=== PATIENT | male | born 1950 | race Caucasian/White ===

== ENCOUNTER → 2016-08-18 | Outpatient (CLI) | payer OTHER, MEDICARE | LOC: FIMAGING 10:05 | PROVIDERS: ATTEND Orthopaedic Surgery | DX: Z01.818 Encounter for other preprocedural examination (principal); M17.11 Unilateral primary osteoarthritis, right knee ==

== ENCOUNTER 2017-02-28 07:15 | Inpatient (IN) | payer OTHER, MEDICARE ==
--- NOTE | 2017-02-28 06:34 | PDHPUP ---
History & Physical Update H&P update statement: This history and physical update is based on an assessment of the patient which was completed after admission or registration (within 24 hours), but prior to the surgery/procedure.
--- NOTE | 2017-02-28 06:35 | PDIAF ---
- Diagnosis Diagnosis: right knee djd Code Status: Full Code - Medication Management Discharge Medications: Medications to Continue on Transfer Aspirin [Aspirin 81mg (*)] 81 mg PO DAILY 01/18/17 [Last Taken Unknown] Atorvastatin Calcium [Lipitor 40 mg (*)] 40 mg PO DAILY 01/18/17 [Last Taken Unknown] Cholecalciferol Vit D3 [Vitamin D3 (*)] 1,000 units PO DAILY 01/18/17 [Last Taken Unknown] Escitalopram Oxalate [Lexapro 10 MG] 10 mg PO DAILY 01/18/17 [Last Taken Unknown ] Ezetimibe [Zetia 10 MG (*)] 10 mg PO DAILY 01/18/17 [Last Taken Unknown] FENOFIBRATE 160 mg PO DAILY 01/18/17 [Last Taken Unknown] Herbals/Supplements -Info Only 1 ea PO DAILY 01/18/17 [Last Taken Unknown] Losartan Potassium [Cozaar 50 mg (*)] 50 mg PO DAILY 01/18/17 [Last Taken Unknown] Multivitamins [Multivitamin (*)] 1 each PO DAILY 01/18/17 [Last Taken Unknown] metFORMIN SR [Glucophage XR 500 mg (*)] 500 mg PO DAILY 01/18/17 [Last Taken Unknown] Discharge Medications: Refer to the Discharge Home Medication list for PRN reason. - Orders Services needed: Home Care, Physical Therapy Home Care Face to Face: I certify that this patient was under my care and that I had the required [id number] encounter meeting the encounter requirements on the discharge day. My findings support the fact that the patient is homebound as defined in Home Care Face to Face Continued: CMS Chapter 7 Medicare Benefits Manual 30.1.1 , The condition of the patient is such that there exists a normal inability to leave home and consequently, leaving home would require a considerable and taxing effort. Activity/Weight Bearing Restrictions: wbat. rom as tolerated. daily dressing changes. no soaking or immersion. f/u at two weeks. seek attn for increasing redness, swelling, drainage, discharge - Follow Up Care Current Providers and Referrals: Doctor Not,On Staff, [Primary Care Provider] -
[~2017-02-28 07:15] MED LIST: ROPIVACAINE 0.2% 80 MG, EPINEPHrine 0.2 MG, KETOROLAC TROMETHAMINE 30 MG, morphINE 10 M... IU ONE; TRANEXAMIC ACID 1,000 MG in NS 100 ML IV ONE
[2017-02-28] MEDS ORDERED: FAMOTIDINE 20 MG TAB PO ONE (09:23)
[2017-02-28] MEDS ORDERED: ceFAZolin 2 GM/SWFI 2 GM/20 ML SYR IVP ONE (09:23)
[2017-02-28] MEDS ORDERED: THROMBIN (BOVINE) 5,000 UNIT VIAL TP ONE (09:23)
[2017-02-28] MEDS ORDERED: ACETAMINOPHEN 325 MG TAB PO ONE (09:23)
[2017-02-28] MEDS ORDERED: LIDOCAINE 1% 2 ML INJ ID PRN (09:24)
[2017-02-28] MEDS ORDERED: LR 1,000 ML IV ONE (09:24)
[2017-02-28] MEDS ORDERED: ceFAZolin 1 GM/5 ML SYR ONE (09:25)
[2017-02-28] MEDS ORDERED: CALCIUM CHLORIDE 1 GM/10 ML INJ ONE (09:37)
[2017-02-28] MEDS ORDERED: MIDAZOLAM 2 MG/2 ML VIAL ONE (10:27)
[2017-02-28] MEDS ORDERED: PROPOFOL 200 MG/20 ML VIAL ONE (10:27)
[2017-02-28] MEDS ORDERED: LIDOCAINE 2% 5 ML SDV ONE ×2 (10:28→11:45)
--- NOTE | 2017-02-28 10:30 | PDANEPAE ---
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 - Pulmonary History Hx COPD: No Hx Asthma/Reactive Airway Disease: No Hx Recent Upper Respiratory Infection: No Hx Oxygen in Use at Home: No Hx Sleep Apnea: Yes Sleep Apnea Screening Result - Last Documented: Positive Pulmonary History Comment: alex positive uses cpap- instructed pt to bring to hospital - Neurologic History Hx Cerebrovascular Accident: No Hx Seizures: No Hx Dementia: No - Endocrine History Hx Diabetes: Yes Endocrine History Comment: type 2- borderline - Renal History Hx Renal Disorders: No - Liver History Hx Hepatic Disorders: No - Neurological & Psychiatric Hx Hx Neurological and Psychiatric Disorders: No - Cancer History Hx Cancer: No - Congenital Disorder History Hx Congenital Disorders: No - GI History Hx Gastrointestinal Disorders: No - Other Health History Other Health History: none - Chronic Pain History Chronic Pain: Yes (right knee) - Surgical History Prior Surgeries: hernia repair. repine- right shoulder repair ANE Review of Systems Review of Systems: - Exercise capacity METS (RN): 4 METS ANE Patient History - Allergies Allergies/Adverse Reactions: No Known Allergies Allergy (Verified 01/25/17 10:40) - Home Medications Home Medications: Aspirin [Aspirin 81mg (*)] 81 mg PO DAILY 01/18/17 [Last Taken 02/21/17] Atorvastatin Calcium [Lipitor 40 mg (*)] 40 mg PO DAILY 01/18/17 [Last Taken ] Cholecalciferol Vit D3 [Vitamin D3 (*)] 1,000 units PO DAILY 01/18/17 [Last Taken 02/21/17] Escitalopram Oxalate [Lexapro 10 MG] 10 mg PO DAILY 01/18/17 [Last Taken ] Ezetimibe [Zetia 10 MG (*)] 10 mg PO DAILY 01/18/17 [Last Taken 02/21/17] FENOFIBRATE 160 mg PO DAILY 01/18/17 [Last Taken 02/28/17] Herbals/Supplements -Info Only 1 ea PO DAILY 01/18/17 [Last Taken 02/21/17] Losartan Potassium [Cozaar 50 mg (*)] 50 mg PO DAILY 01/18/17 [Last Taken ] Multivitamins [Multivitamin (*)] 1 each PO DAILY 01/18/17 [Last Taken 02/21/17] metFORMIN SR [Glucophage XR 500 mg (*)] 500 mg PO DAILY 01/18/17 [Last Taken 07/12 06:30] - NPO status NPO Since - Liquids (Date): 02/27/17 NPO Since - Liquids (Time): 17:00 NPO Since - Solids (Date): 02/27/17 NPO Since - Solids (Time): 17:00 - Smoking Hx Smoking Status: Former smoker - Family Anes Hx Family Hx Anesthesia Complications: none ANE Labs/Vital Signs - Vital Signs Blood Pressure: 116/85 Heart Rate: 68 Respiratory Rate: 20 O2 Sat (%): 93 Height: 171.45 cm Weight: 97.976 kg ANE Physical Exam - Airway Neck exam: increased neck circumference, short neck Mallampati Score: Class 2 Mouth exam: normal dental/mouth exam - Pulmonary Pulmonary: no respiratory distress, no rales or rhonchi, clear to auscultation, reduced air movement - Cardiovascular Cardiovascular: regular rate and rhythym, no murmur, rub, or gallop - ASA Status ASA Status: III ANE Anesthesia Plan Anesthesia Plan: spinal Regional Anesthesia: single shot NB, adductor canal FNB
[2017-02-28] MEDS ORDERED: MIDAZOLAM 2 MG/2 ML VIAL IVP ONE (10:45)
--- NOTE | 2017-02-28 10:46 | PDANEPAE ---
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 high chol - Pulmonary History Hx COPD: No Hx Asthma/Reactive Airway Disease: No Hx Recent Upper Respiratory Infection: No Hx Oxygen in Use at Home: No Hx Sleep Apnea: Yes Sleep Apnea Screening Result - Last Documented: Positive Pulmonary History Comment: alex positive uses cpap- instructed pt to bring to hospital - Neurologic History Hx Cerebrovascular Accident: No Hx Seizures: No Hx Dementia: No - Endocrine History Hx Diabetes: Yes Endocrine History Comment: type 2- borderline - Renal History Hx Renal Disorders: No - Liver History Hx Hepatic Disorders: No - Neurological & Psychiatric Hx Hx Neurological and Psychiatric Disorders: No - Cancer History Hx Cancer: No - Congenital Disorder History Hx Congenital Disorders: No - GI History Hx Gastrointestinal Disorders: No - Other Health History Other Health History: none - Chronic Pain History Chronic Pain: Yes (right knee) - Surgical History Prior Surgeries: hernia repair. repine- right shoulder repair ANE Review of Systems Review of Systems: - Exercise capacity METS (RN): 4 METS ANE Patient History - Allergies Allergies/Adverse Reactions: No Known Allergies Allergy (Verified 01/25/17 10:40) - Home Medications Home Medications: Aspirin [Aspirin 81mg (*)] 81 mg PO DAILY 01/18/17 [Last Taken 02/21/17] Atorvastatin Calcium [Lipitor 40 mg (*)] 40 mg PO DAILY 01/18/17 [Last Taken ] Cholecalciferol Vit D3 [Vitamin D3 (*)] 1,000 units PO DAILY 01/18/17 [Last Taken 02/21/17] Escitalopram Oxalate [Lexapro 10 MG] 10 mg PO DAILY 01/18/17 [Last Taken ] Ezetimibe [Zetia 10 MG (*)] 10 mg PO DAILY 01/18/17 [Last Taken 02/21/17] FENOFIBRATE 160 mg PO DAILY 01/18/17 [Last Taken 02/28/17] Herbals/Supplements -Info Only 1 ea PO DAILY 01/18/17 [Last Taken 02/21/17] Losartan Potassium [Cozaar 50 mg (*)] 50 mg PO DAILY 01/18/17 [Last Taken ] Multivitamins [Multivitamin (*)] 1 each PO DAILY 01/18/17 [Last Taken 02/21/17] metFORMIN SR [Glucophage XR 500 mg (*)] 500 mg PO DAILY 01/18/17 [Last Taken 07/12 06:30] - NPO status NPO Since - Liquids (Date): 02/27/17 NPO Since - Liquids (Time): 17:00 NPO Since - Solids (Date): 02/27/17 NPO Since - Solids (Time): 17:00 - Smoking Hx Smoking Status: Former smoker - Family Anes Hx Family Hx Anesthesia Complications: none ANE Labs/Vital Signs - Vital Signs Blood Pressure: 116/85 Heart Rate: 68 Respiratory Rate: 20 O2 Sat (%): 93 Height: 171.45 cm Weight: 97.976 kg ANE Physical Exam - Airway Neck exam: FROM Mallampati Score: Class 1 Mouth exam: normal dental/mouth exam - Pulmonary Pulmonary: no respiratory distress - Cardiovascular Cardiovascular: regular rate and rhythym - ASA Status ASA Status: I ANE Anesthesia Plan Anesthesia Plan: MAC
[2017-02-28] MEDS ORDERED: NALOXONE HCL 0.4 MG/ML INJ IVP PRN (11:36)
[2017-02-28] MEDS ORDERED: DEXAMETHASONE 4 MG/ML VIAL IVP PRN (11:36)
[2017-02-28] MEDS ORDERED: fentaNYL 100 MCG/2 ML INJ IVP PRN (11:36)
[2017-02-28] MEDS ORDERED: LR 500 ML IV PRN (11:36)
[2017-02-28] MEDS ORDERED: PHENYLEPHRINE HCL 100 MCG/ML SYR IVP PRN (11:36)
[2017-02-28] MEDS ORDERED: PROMETHAZINE HCL 25 MG/ML INJ IVP PRN ×2 (11:36→12:25)
[2017-02-28] MEDS ORDERED: ALBUTEROL 3 ML DEYVIAL IH PRN (11:36)
[2017-02-28] MEDS ORDERED: ROCURONIUM 50 MG/5 ML VIAL ONE (11:40)
[2017-02-28] MEDS ORDERED: ROPIVACAINE HCL 150 MG/30 ML INJ ONE (11:40)
[2017-02-28] MEDS ORDERED: MAGNESIUM HYDROXIDE 30 ML UDCUP PO PRN (12:25)
[2017-02-28] MEDS ORDERED: ONDANSETRON DISINTEGRATING 4 MG TAB PO PRN (12:25)
[2017-02-28] MEDS ORDERED: POLYETHYLENE GLYCOL 3350 17 GM PKT PO PRN (12:25)
[2017-02-28] MEDS ORDERED: BISACODYL 10 MG SUPP PR PRN (12:25)
[2017-02-28] MEDS ORDERED: LACTULOSE 20 GM/30 ML UDCUP PO PRN (12:25)
[2017-02-28] MEDS ORDERED: PROMETHAZINE HCL 25 MG SUPPR PR PRN (12:25)
[2017-02-28] MEDS ORDERED: ONDANSETRON 4 MG/2 ML VIAL IVP PRN (12:25)
[2017-02-28] MEDS ORDERED: TEMAZEPAM 15 MG CAP PO PRN (12:25)
[2017-02-28] MEDS ORDERED: diphenhydrAMINE 25 MG CAP PO PRN (12:25)
[2017-02-28] MEDS ORDERED: DIPHENOXYLATE/ATROPINE LOMOTIL 1 TAB PO PRN (12:25)
[2017-02-28] MEDS ORDERED: oxyCODONE IR 5 MG TAB PO PRN (12:25)
[2017-02-28] MEDS ORDERED: METOCLOPRAMIDE 10 MG/2 ML VIAL IVP PRN (12:25)
[2017-02-28] MEDS ORDERED: DIAZEPAM 5 MG TAB PO PRN (12:25)
[2017-02-28] MEDS ORDERED: LR 1,000 ML IV SCH (12:30)
--- NOTE | 2017-02-28 13:23 | POSTANESTH ---
Post Anesthetic Evaluation Cardiovascular Status: Normal, Stable Respiratory Status: Normal, Stable Level of Consciousness/Mental Status: Can Participate in Eval Pain Control: Adequate, Prn Tx Ordered Nausea/Vomiting Control: Adequate, Prn Tx Ordered Complications Possibly Related to Anesthesia: None Noted
[2017-02-28] MEDS: TRANEXAMIC ACID 650 MG TAB PO SCH ×2 (15:09→21:03)
[2017-02-28] MEDS: ACETAMINOPHEN 325 MG TAB PO SCH (17:45)
[2017-02-28] MEDS: ceFAZolin 2 GM/DEXTROSE 100 ML IV SCH (18:15)
[2017-02-28] MEDS: FAMOTIDINE 20 MG TAB PO SCH (21:03)
[2017-02-28] MEDS: SENNOSIDES/DOCUSATE SODIUM TAB PO SCH (21:03)
[2017-03-01] MEDS: ACETAMINOPHEN 325 MG TAB PO SCH ×3 (01:38→13:17)
[2017-03-01] MEDS: ceFAZolin 2 GM/DEXTROSE 100 ML IV SCH (03:49)
[2017-03-01] MEDS: TRANEXAMIC ACID 650 MG TAB PO SCH (03:49)
[2017-03-01 05:08] LABS: HEMATOCRIT 37.2 % (40.0-51.0); HEMOGLOBIN 13.1 g/dL (13.7-17.5)
--- NOTE | 2017-03-01 07:17 | PDIAF ---
- Diagnosis Diagnosis: right knee djd Code Status: Full Code - Medication Management Discharge Medications: Medications to Continue on Transfer Aspirin [Aspirin 81mg (*)] 81 mg PO DAILY 01/18/17 [Last Taken 02/21/17] Atorvastatin Calcium [Lipitor 40 mg (*)] 40 mg PO DAILY 01/18/17 [Last Taken ] Cholecalciferol Vit D3 [Vitamin D3 (*)] 1,000 units PO DAILY 01/18/17 [Last Taken 02/21/17] Escitalopram Oxalate [Lexapro 10 MG] 10 mg PO DAILY 01/18/17 [Last Taken ] Ezetimibe [Zetia 10 MG (*)] 10 mg PO DAILY 01/18/17 [Last Taken 02/21/17] FENOFIBRATE 160 mg PO DAILY 01/18/17 [Last Taken 02/28/17] Herbals/Supplements -Info Only 1 ea PO DAILY 01/18/17 [Last Taken 02/21/17] Losartan Potassium [Cozaar 50 mg (*)] 50 mg PO DAILY 01/18/17 [Last Taken ] Multivitamins [Multivitamin (*)] 1 each PO DAILY 01/18/17 [Last Taken 02/21/17] metFORMIN SR [Glucophage XR 500 mg (*)] 500 mg PO DAILY 01/18/17 [Last Taken 07/12 06:30] oxyCODONE IR [Oxycodone Ir (*)] 5 - 10 mg PO Q3HRS PRN #80 tab 03/01/17 [Last Taken Unknown] Discharge Medications: Refer to the Discharge Home Medication list for PRN reason. - Orders Services needed: Home Care, Physical Therapy Home Care Face to Face: I certify that this patient was under my care and that I had the required [id number] encounter meeting the encounter requirements on the discharge day. My findings support the fact that the patient is homebound as defined in Home Care Face to Face Continued: CMS Chapter 7 Medicare Benefits Manual 30.1.1 , The condition of the patient is such that there exists a normal inability to leave home and consequently, leaving home would require a considerable and taxing effort. Diet Recommendation: no restrictions on diet Diet Texture: Regular Texture Diet Activity/Weight Bearing Restrictions: aspirin 325mg po daily for six weeks. wbat. rom as tolerated. daily dressing changes. no soaking or immersion. f/ u at two weeks. seek attn for increasing redness, swelling, drainage, discharge - Follow Up Care Current Providers and Referrals: Doctor Not,On Staff, [Medical Doctor] -
[2017-03-01 08:04] VITALS: PULSE 72; RESP 12; TEMP 97.6; O2SAT 96
[2017-03-01 08:06] VITALS: BP 117/71
[2017-03-01] MEDS ORDERED: metFORMIN SR 500 MG TAB PO SCH (09:00)
[2017-03-01] MEDS ORDERED: LOSARTAN POTASSIUM 50 MG TAB PO SCH (09:00)
[2017-03-01] MEDS ORDERED: Herbals/Supplements -Info Only PO SCH (09:00)
[2017-03-01] MEDS ORDERED: ESCITALOPRAM OXALATE 10 MG TAB PO SCH (09:00)
[2017-03-01] MEDS ORDERED: ASPIRIN EC 325 MG TAB PO SCH (09:00)
[2017-03-01] MEDS ORDERED: ATORVASTATIN CALCIUM 40 MG TAB PO SCH (09:00)
[2017-03-01] MEDS ORDERED: MULTIVITAMINS 1 EACH TAB PO SCH (09:00)
[2017-03-01] MEDS ORDERED: Fenofibrate [Fenofibrate] 160 MG PO SCH (09:00)
[2017-03-01] MEDS ORDERED: CHOLECALCIFEROL VIT D3 1,000 UNITS TAB PO SCH (09:00)
[2017-03-01] MEDS ORDERED: EZETIMIBE 10 MG TAB PO SCH (09:00)
[2017-03-01] MEDS: SENNOSIDES/DOCUSATE SODIUM TAB PO SCH (09:16)
[2017-03-01] MEDS: FAMOTIDINE 20 MG TAB PO SCH (09:16)
--- NOTE | 2017-03-01 09:17 | ASMTCMCOM ---
CM Note CM Note Notes: Chart reviewed.ient medically ready for discharge per MD. Needs HHC referrals made. [facility] able to accept. Spoke to Dariel at [facility] and confirmed address and PCP with patient. Plan home with HHC RN and PT. CM available should other needs arise. Date Signed: 03/01/2017 09:16 AM Electronically Signed By:Kasie Santacruz RN
--- NOTE | 2017-03-01 12:36 | GDS ---
[f rep st] DISCHARGE SUMMARY ADMITTING DIAGNOSIS: Right knee degenerative joint disease. DISCHARGE DIAGNOSIS: Right knee degenerative joint disease. PROCEDURE: Right total knee arthroplasty, MAKOplasty. HISTORY OF PRESENT ILLNESS: The patient is a 66-year-old gentleman with end-stage arthritis to his r ight knee. Clinical and radiographic features are consistent with this. He has failed all attempts at conservative management. I have, therefore, recommended total knee replacement. He understood th e risks, benefits, alternatives, and wished to proceed. Written consent was signed and placed in marcio dick's chart. HOSPITAL COURSE: The patient was admitted to the hospital floor after uncomplicated total knee arthr oplasty. He tolerated the procedure well. Postoperatively, he had no complications. At the time of discharge, he is tolerating an oral diet, his pain is well controlled on oral medicines, he is voidi ng without difficulty. Incision is clean, dry, and intact. He has no calf swelling or tenderness. Negative Homans bilaterally. X-rays demonstrate anatomic alignment with slight flexion of the femora l component. DISCHARGE ACTIVITIES: Weightbearing as tolerated. Range of motion as tolerated. Daily dressing holly nges. No soaking or immersion. He may shower without a bandage. FOLLOWUP: 2 weeks. Seek attention for increasing redness, swelling, drainage or discharge. DISCHARGE MEDICATIONS: Oxycodone 5 mg 1-2 every 4 hours p.r.n. pain, and aspirin 325 mg p.o. daily f or 6 weeks. Copy requested to: Primary Care Physician /[id number]/MODL
--- NOTE | 2017-03-01 16:34 | ASDISCHSUM ---
Discharge Information Plan Status:Home with Home Health Medically Cleared to Leave:02/28/2017 Discharge Date:03/01/2017 02:18 PM D/C Disposition:Home Health Service ADT D/C Disposition:Home Health Service Projected Discharge Date:03/01/2017 11:00 AM Transportation at D/C: Discharge Delay Reason: Follow-Up Date:03/01/2017 11:00 AM Discharge Slot: Final Diagnosis: Placement Information Referral Type:*Home Health Care Services Referral ID:[id number] Provider Name:[facility] Address 1:[address] [address] Address 2: City:[place] Selection Factors: State:[place] Patient Contact Information Contact Name:DEONTE Relationship: Address:[facility] [address] City:[place] Alternate Phone: State/Zip Code:[place] [address] Email: Financial Information Financial Class: Primary Plan Desc:MEDICARE INPATIENT Primary Plan Number:[id number] Secondary Plan Desc:[employer]/MDR SUPPLEMENT Secondary Plan Number:[id number] Assessment Information LACE LACE Length of stay for Answers: 1 day current admission Acuity / Level of Care Answers: No. Emergency dept visits in Answers: 0 last 6 months Score: 1 Date Signed: 03/01/2017 09:10 AM Electronically Signed By:Kasie Santacruz RN Case Management Discharge Plan Note Case Management Discharge Discharge Order Complete? Answers: Yes Patient to Obtain Answers: Independently Medications Transportation Arranged Answers: Family/Friends Faxed Final Orders Answers: Yes Agency/Facility Transfer Answers: Yes Report Printed & Faxed to Receiving Agency Family Notified Answers: Yes Date Signed: 03/01/2017 09:11 AM Electronically Signed By:Kasie Santacruz RN [facility] CM Progress Note CM Note CM Note Notes: Chart reviewed.ient medically ready for discharge per MD. Needs [facility] referrals made. [facility] able to accept. Spoke to Dariel at [facility] and confirmed address and PCP with patient. Plan home with [facility] RN and PT. CM available should other needs arise. Date Signed: 03/01/2017 09:16 AM Electronically Signed By:Kasie Santacruz RN Intervention Information
--- NOTE | 2017-03-03 10:33 | GOP ---
[f rep st] OPERATIVE REPORT DATE OF OPERATION: 02/28/2017 SURGEON: Abhishek Lorenz MD MAILING SECTION CLERK: Adonis Hastings, ROW BOSS, NET DEVELOPER, library technical assistant was medical necessity for the entirety of t he case. Also present Rubi Kaba, PAC PREOPERATIVE DIAGNOSIS: Right knee degenerative joint disease. POSTOPERATIVE DIAGNOSIS: Right knee degenerative joint disease. PROCEDURE PERFORMED: Right total knee arthroplasty, MAKOplasty. FINDINGS: SPECIMENS: To Pathology, the bony cuts. INDICATIONS: The patient is a 66-year-old gentleman who has end-stage arthritis to his right knee. Clinical and radiographic features are consistent with this. He has failed all attempts at conservat bryant management. I therefore, recommended operative intervention with total knee replacement. He und erstood the risks, benefits, alternatives, and wished to proceed. Written consent was signed and andie naomie in patient's chart. DESCRIPTION OF PROCEDURE: The patient was identified in the preanesthesia area. The right knee thor rly demarcated as the operative site with indelible marker. He was given 2 g of Ancef intravenously e n route to the operative suite. In the OR, spinal anesthetic and additional sedation was carried out . He was positioned in the supine position. Appropriate time-out procedure was carried out. The [facility] lower extremity was then sterilely prepped and draped in the usual fashion. The limb was exsangu inated. The tourniquet inflated to 275 mmHg. Standard anterior midline incision was made. Thick priest bcutaneous flaps were elevated followed by medial parapatellar arthrotomy. There was gross tricompar tmental arthritis. A separate percutaneous incision was made in the mid femur and mid li, and the 2 pins were placed in each area and the femoral and tibial reference arrays were then affixed. A femor al and tibial check point were then placed. The bony landmarks were entered into the computer. Soft tissue balancing and gentle manipulation of the components was carried out using the MAKOplasty softw are. Using the robot assistance, the femoral cuts were made for a size 5 femur, including a trochlea r box cut, and for size 5 tibia. The bony fragments were withdrawn. A trial reduction over a size 5 x 9 mm polyethylene spacer was then placed. The tibial central punch was then placed. The patella w as everted, cut in a freehand cutting technique and drill holes made for 35 mm all poly patella. The knee was balanced and would come to full extension and flexion without instability. The trial compo nents were withdrawn. The bony surfaces thoroughly cleansed and dried with pulsatile lavage. In a s equential fashion the tibia, femoral and patellar components were then cemented. The final polyethyle ne spacer, size 5 x 9 mm, was impacted, confirmed to be fully seated. The cement was allowed to cure . During this process, the joint capsule was instilled with a joint cocktail of ropivacaine, morphin e, Toradol, and epinephrine. The medial parapatellar arthrotomy was closed using #1 Ethibond. The kn ee instilled with a platelet-rich plasma solution. Subcutaneous tissue closed using 0 Quill. The in cisions were stapled. A sterile dressing was applied. The patient was awakened, extubated, taken to the recovery room in good stable condition. TOTAL TOURNIQUET TIME: 60 minutes. COMPLICATIONS: None. IMPLANTS: The Loly triathlon knee size 5 PS femoral component, size 5 tibia, 5 x 9 mm X3 tibial b earing insert, and X 3 asymmetric patella, A35. DISPOSITION: To the recovery room, then the floor. He is weightbearing and range of motion as rudy ated and will follow standard knee recovery. /[id number]/MODL
== END 2017-03-01 14:18 | disposition home health service (06) | DRG 470 ==
LOC: F3N 08:51
PROVIDERS: ADMIT Orthopaedic Surgery; ATTEND Orthopaedic Surgery
PROC: 6A550Z2 Pheresis of Platelets, Single (ICD-10-PCS; principal; 2017-02-28 11:15)
PROC: 3E0U3GC Introduction of Other Therapeutic Substance into Joints, Percutaneous Approach (ICD-10-PCS; principal; 2017-02-28 11:15)
PROC: 0SRC0J9 Replacement of Right Knee Joint with Synthetic Substitute, Cemented, Open Approach (ICD-10-PCS; principal; 2017-02-28 11:15)
PROC: 8E0Y0CZ Robotic Assisted Procedure of Lower Extremity, Open Approach (ICD-10-PCS; principal; 2017-02-28 11:15)
DX: M17.11 Unilateral primary osteoarthritis, right knee (principal); I10 Essential (primary) hypertension; E78.00 Pure hypercholesterolemia, unspecified; R73.03 Prediabetes; G47.33 Obstructive sleep apnea (adult) (pediatric)
CPT/HCPCS: 97116-GP; 97161-GP; 97165-GO; C1713; G8978-GP-CI; G8979-GP-CI; G8980-GP-CI; G8987-GO-CI; G8988-GO-CI; G8989-GO-CI; J0171; J0690; J1885; J2250; J2704; J2795

== ENCOUNTER → 2017-04-20 | Outpatient (CLI) | payer OTHER, MEDICARE | LOC: BMCIMAGING 09:27 | PROVIDERS: ATTEND Physician Assistant | DX: Z47.1 Aftercare following joint replacement surgery (principal); Z96.651 Presence of right artificial knee joint ==

== ENCOUNTER → 2017-06-01 | Outpatient (CLI) | payer OTHER, MEDICARE | LOC: BMCIMAGING 09:30 | PROVIDERS: ATTEND Orthopaedic Surgery | DX: Z47.1 Aftercare following joint replacement surgery (principal); Z96.651 Presence of right artificial knee joint; M85.861 Other specified disorders of bone density and structure, right lower leg ==

== ENCOUNTER → 2017-09-19 | Outpatient (CLI) | payer OTHER, MEDICARE | LOC: BMCIMAGING 09:18 | PROVIDERS: ATTEND Physician Assistant | DX: Z47.1 Aftercare following joint replacement surgery (principal); Z96.651 Presence of right artificial knee joint; M25.461 Effusion, right knee ==

== ENCOUNTER → 2017-09-22 | Outpatient (CLI) | payer OTHER, MEDICARE | LOC: FIMAGING 08:38 | PROVIDERS: ATTEND Physician Assistant | DX: M25.561 Pain in right knee (principal); Z96.651 Presence of right artificial knee joint | CPT/HCPCS: 78315; A9503 ==

== ENCOUNTER → 2018-01-23 | Outpatient (CLI) | payer OTHER, MEDICARE | LOC: BMCIMAGING 08:16 | PROVIDERS: ATTEND Orthopaedic Surgery | DX: Z47.1 Aftercare following joint replacement surgery (principal); Z96.651 Presence of right artificial knee joint; M25.461 Effusion, right knee ==

== ENCOUNTER 2018-07-17 08:45 | Inpatient (IN) | payer OTHER, MEDICARE ==
--- NOTE | 2018-07-17 06:41 | PDHPUP ---
History & Physical Update H&P update statement: This history and physical update is based on an assessment of the patient which was completed after admission or registration (within 24 hours), but prior to the surgery/procedure. H&P update: no change in patient's condition since H&P completed
--- NOTE | 2018-07-17 06:41 | PDIAF ---
- Diagnosis Diagnosis: right knee djd Code Status: Full Code - Medication Management Discharge Medications: electronically signed and located in the Home Medication List. - Orders Services needed: Home Care, Physical Therapy Home Care Face to Face: I certify that this patient was under my care and that I had the required [id number] encounter meeting the encounter requirements on the discharge day. My findings support the fact that the patient is homebound as defined in Home Care Face to Face Continued: CMS Chapter 7 Medicare Benefits Manual 30.1.1 , The condition of the patient is such that there exists a normal inability to leave home and consequently, leaving home would require a considerable and taxing effort. Diet Recommendation: no restrictions on diet Diet Texture: Regular Texture Diet Additional Instructions: TOTAL JOINT ARTHROPLASTY DISCHARGE INSTRUCTIONS 1. Your surgeon follows the [facility] protocol for reducing your risk of DVT (blood clots) following surgery. Medication will be ordered to prevent blood clots. A sudden increase in calf pain and/or swelling could indicate a blood clot in your leg. If this occurs, please call your surgeon or his/her human services assistant. An ultrasound of the leg may be necessary to diagnose a blood clot. If you have conditions that make you a higher risk for blood clots, your surgeon may use more aggressive ways to prevent them. Notify your surgeon if you think you are a high risk for blood clots. 2. Wear your white surgical stockings (KARY hose) for 2 weeks. This decreases your swelling and may help prevent blood clots. It is ok to remove KARY hose at night time to give your legs a break. 3. Swelling and bruising in the surgical leg is common. If you feel that it is excessive, please notify your surgeon. 4. Elevate your surgical leg with the ankle above the hip several times every day. Please keep the leg straight when you elevate by putting pillows under your foot. Do not put pillows under your knee. This will make being able to fully straighten more difficult. This is uncomfortable, but try to do it as much as possible. 5. For total knee replacements use compressive wrap on your knee for 3-5 days after surgery, then you can discontinue it. 6. Use a walker or crutches for 1-2 weeks. Progress your weight-bearing as tolerated. You may start to use a cane when you feel stable and safe. 7. You will receive physical therapy instructions in the hospital. Continue those exercises at home. There are additional exercises in the total joint booklet you were given before surgery. Outpatient physical therapy will begin 7- 10 days after surgery. Please schedule this in advance. 8. Use ice on your knee at least 3-5 times every day for 30 minutes. This helps reduce pain and swelling. Also use it at night before falling asleep. 9. Leave your surgical dressing in place for 2 weeks. Your dressing is water resistant, but not waterproof. Cover it with Saran Wrap or Hkzkc-m-Eljo before showering. You may shower as soon as you feel safe entering a shower. If you notice bleeding from your incision 2 or 3 days after surgery, please notify your surgeon. 10. Due to narcotics, decreased activity and altered diet, most patients experience constipation after surgery. Use bpxd-pkw-wyjfnbr stool softeners while you are on narcotics. 11. You may drive a car when you are comfortable bearing weight, have good muscular control of your leg and are off narcotics. This usually occurs 2-4 weeks after surgery, depending on which leg was operated on. 12. If there are questions not addressed here, please refer the [facility] book given for more information. If you still have questions, please contact your surgeon s office. 13. If you have a life-threatening emergency, please call 911 and go to the emergency room immediately. For non-life threatening emergencies, please call your physicians office for advice before going to the emergency room. - Follow Up Care Current Providers and Referrals: NONE *PRIMARY CARE P,. [Primary Care Provider] - Abhishek Lorenz MD [Medical Doctor] -
[2018-07-17] MEDS ORDERED: ceFAZolin 2 GM/DEXTROSE 100 ML IV ONE (10:22)
[2018-07-17] MEDS ORDERED: ACETAMINOPHEN 325 MG TAB PO ONE (10:22)
[2018-07-17] MEDS ORDERED: FAMOTIDINE 20 MG TAB PO ONE (10:22)
[2018-07-17] MEDS ORDERED: LR 1,000 ML IV ONE (10:23)
[2018-07-17] MEDS ORDERED: LIDOCAINE 1% 2 ML INJ ID PRN (10:23)
[2018-07-17] MEDS ORDERED: ceFAZolin 1 GM/5 ML SYR ONE ×2 (10:27→11:27)
[2018-07-17] MEDS ORDERED: BUPIVACAINE/EPI 0.5% 30 ML SDV ONE (10:27)
[2018-07-17] MEDS ORDERED: MIDAZOLAM 2 MG/2 ML VIAL IVP ONE (11:08)
--- NOTE | 2018-07-17 11:08 | PDANEPAE ---
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 high chol - Pulmonary History Hx COPD: No Hx Asthma/Reactive Airway Disease: No Hx Recent Upper Respiratory Infection: No Hx Oxygen in Use at Home: No Hx Sleep Apnea: Yes Sleep Apnea Screening Result - Last Documented: Positive Pulmonary History Comment: alex positive uses cpap- instructed pt to bring to hospital - Neurologic History Hx Cerebrovascular Accident: No Hx Seizures: No Hx Dementia: No - Endocrine History Hx Diabetes: No Endocrine History Comment: type 2- borderline - Renal History Hx Renal Disorders: No - Liver History Hx Hepatic Disorders: No - Neurological & Psychiatric Hx Hx Neurological and Psychiatric Disorders: No - Cancer History Hx Cancer: No - Congenital Disorder History Hx Congenital Disorders: No - GI History Hx Gastrointestinal Disorders: No - Other Health History Other Health History: none - Chronic Pain History Chronic Pain: Yes (right knee) - Surgical History Prior Surgeries: hernia repair. repine- right shoulder repair. TKA 03/03/17 ANE Review of Systems Review of Systems: - Exercise capacity METS (RN): 4 METS ANE Patient History - Allergies Allergies/Adverse Reactions: No Known Allergies Allergy (Verified 01/25/17 10:40) - Home Medications Home Medications: Aspirin [Aspirin 81mg (*)] 01/18/17 [Last Taken 02/21/17] Atorvastatin Calcium [Lipitor 40 mg (*)] 01/18/17 [Last Taken 02/21/17] Cholecalciferol Vit D3 [Vitamin D3 (*)] 01/18/17 [Last Taken 02/21/17] Escitalopram Oxalate [Lexapro 10 MG] 01/18/17 [Last Taken 02/28/17] Ezetimibe [Zetia 10 MG (*)] 01/18/17 [Last Taken 02/21/17] FENOFIBRATE 01/18/17 [Last Taken 02/28/17] Herbals/Supplements -Info Only 01/18/17 [Last Taken 02/21/17] Losartan Potassium [Cozaar 50 mg (*)] 01/18/17 [Last Taken 02/28/17] Multivitamins [Multivitamin (*)] 01/18/17 [Last Taken 02/21/17] oxyCODONE IR [Oxycodone Ir (*)] 06/27/18 [Last Taken Unknown] - NPO status NPO Status: no food or drink >8 hours - Smoking Hx Smoking Status: Former smoker - Family Anes Hx Family Hx Anesthesia Complications: none ANE Labs/Vital Signs - Vital Signs Height: 5 ft 7.5 in Weight: 99.337 kg ANE Physical Exam - Airway Neck exam: FROM Mallampati Score: Class 2 Mouth exam: normal dental/mouth exam - Pulmonary Pulmonary: no respiratory distress - Cardiovascular Cardiovascular: regular rate and rhythym - ASA Status ASA Status: III ANE Anesthesia Plan Anesthesia Plan: spinal Regional Anesthesia: single shot NB
[2018-07-17] MEDS ORDERED: PROPOFOL/EMULSION 500 MG/50 ML BOTTLE IV ONE (11:27)
[2018-07-17] MEDS ORDERED: BUPIVACAINE/DEXTROSE 7.5MG/ML 2 ML SPINAL AMP SP ONE (11:29)
[2018-07-17] MEDS ORDERED: ROPIVACAINE HCL 150 MG/30 ML INJ ONE (12:14)
[2018-07-17] MEDS ORDERED: DEXAMETHASONE 4 MG/ML VIAL ONE (12:14)
[2018-07-17] MEDS ORDERED: fentaNYL 100 MCG/2 ML INJ ONE ×2 (12:40→14:31)
[2018-07-17] MEDS ORDERED: VANCOMYCIN 1 GM VIAL ONE (12:51)
[2018-07-17] MEDS ORDERED: VANCOMYCIN 500 MG/10 ML VIAL IV ONE ×2 (12:51→13:18)
[2018-07-17] MEDS ORDERED: PROPOFOL 200 MG/20 ML VIAL ONE (13:32)
[2018-07-17] MEDS ORDERED: LACTULOSE 20 GM/30 ML UDCUP PO PRN (13:43)
[2018-07-17] MEDS ORDERED: PROMETHAZINE HCL 25 MG SUPPR PR PRN (13:43)
[2018-07-17] MEDS ORDERED: oxyCODONE IR 5 MG TAB PO PRN (13:43)
[2018-07-17] MEDS ORDERED: CYCLOBENZAPRINE 10 MG TAB PO PRN (13:43)
[2018-07-17] MEDS ORDERED: TEMAZEPAM 15 MG CAP PO PRN (13:43)
[2018-07-17] MEDS ORDERED: BISACODYL 10 MG SUPP PR PRN (13:43)
[2018-07-17] MEDS ORDERED: MAGNESIUM HYDROXIDE 30 ML UDCUP PO PRN (13:43)
[2018-07-17] MEDS ORDERED: diphenhydrAMINE 25 MG CAP PO PRN (13:43)
[2018-07-17] MEDS ORDERED: POLYETHYLENE GLYCOL 3350 17 GM PKT PO PRN (13:43)
[2018-07-17] MEDS ORDERED: PROMETHAZINE HCL 25 MG/ML INJ IVP PRN (13:43)
[2018-07-17] MEDS ORDERED: DIPHENOXYLATE/ATROPINE LOMOTIL 1 TAB PO PRN (13:43)
--- NOTE | 2018-07-17 13:43 | POSTOPPROG ---
Post Op Note Date of Operation: 07/17/18 Surgeon: Abhishek Lorenz Fiber Machine Tender: Darling Anesthesiologist: Bridgette Anesthesia: Spinal Pre-op Diagnosis: Failed right TKA Post-op Diagnosis: Failed right TKA Indication: Failed right TKA Procedure: Revision of right total knee arthroplasty femoral and tibial components Findings: Failed right TKA Inf/Abcess present in the surg proc area at time of surgery?: No Depth: Deep Incisional (Fascial) EBL: 100-500
[2018-07-17] MEDS ORDERED: fentaNYL 100 MCG/2 ML INJ IVP PRN (13:51)
[2018-07-17] MEDS ORDERED: NALOXONE HCL 0.4 MG/ML INJ IVP PRN (13:51)
[2018-07-17] MEDS ORDERED: ONDANSETRON 4 MG/2 ML VIAL IVP PRN (13:51)
[2018-07-17] MEDS ORDERED: HYDROmorphONE/DILAUDID 1 MG/ML INJ IVP PRN (13:51)
--- NOTE | 2018-07-17 14:00 | PDMN ---
Medical Necessity Medical [place] [facility] [place] [place], Total: 67 yo s/p revision of TKA , [facility] only
--- NOTE | 2018-07-17 16:17 | SOAPPROG ---
SOAP Progress Note Assessment/Plan: Assessment: failed right TKA s/p right TKA revision, both femoral and tibial components - procedure earlier today Plan: Begin discharge planning - home, support from , home PT Continue PT - work on WBAT, ROM Continue VTE ppx - aspirin 325 mg once daily, SCDs, KARY valencia Continue pain medication Subjective: Patient states he is doing well, pain is tolerable at this time. He is hoping to go home tomorrow. He will have the support of his . Patient states a home PT called him last week and they will be coming to his house during the initial recovery period until he starts outpatient PT. He denies shortness of breath, chest pain, fever, chills, nausea, calf pain. Objective: Vital Signs Temp Pulse Resp BP Pulse Ox 36.4 C 68 17 133/72 H 96 07/17/18 15:26 07/17/18 15:26 07/17/18 15:26 07/17/18 15:26 07/17/18 15:26 07/16/18 07/17/18 07/18/18 05:59 05:59 05:59 Intake Total 1050 Output Total 200 Balance 850 Patient resting comfortably in bed, no acute distress. RLE: Surgical wound dressings are clean, dry and intact. Lower leg compartments are soft and nontender. He can actively DF and PF his right foot and great toe against resistance. Grossly NVI distally. ICD10 Worksheet Patient Problems: Problems Problem Status Onset Right knee pain Acute - ICD10 Problem Qualifiers (1) Right knee pain Qualifiers: Chronicity: chronic Qualified Code(s): M25.561 - Pain in right knee; G89.29 - Other chronic pain; G89.29 - Other chronic pain
[2018-07-17] MEDS: LR 1,000 ML IV SCH (17:14)
[2018-07-17] MEDS: ceFAZolin 2 GM/DEXTROSE 100 ML IV SCH (20:09)
[2018-07-17] MEDS: SENNOSIDES/DOCUSATE SODIUM TAB PO SCH (20:11)
[2018-07-17] MEDS: FAMOTIDINE 20 MG TAB PO SCH (20:12)
[2018-07-17] MEDS: TRANEXAMIC ACID 650 MG TAB PO SCH (20:12)
[2018-07-17] MEDS: ACETAMINOPHEN 325 MG TAB PO SCH (20:14)
[2018-07-17] MEDS: ASPIRIN 325 MG TAB PO SCH (20:17)
[2018-07-18] MEDS: ACETAMINOPHEN 325 MG TAB PO SCH ×2 (01:38→08:10)
[2018-07-18] MEDS: LR 1,000 ML IV SCH (01:42)
[2018-07-18] MEDS: ceFAZolin 2 GM/DEXTROSE 100 ML IV SCH (04:14)
[2018-07-18] MEDS: TRANEXAMIC ACID 650 MG TAB PO SCH (04:15)
--- NOTE | 2018-07-18 07:08 | PDIAF ---
- Diagnosis Diagnosis: right knee djd Code Status: Full Code - Medication Management Discharge Medications: electronically signed and located in the Home Medication List. - Orders Services needed: Home Care, Physical Therapy Home Care Face to Face: I certify that this patient was under my care and that I had the required [id number] encounter meeting the encounter requirements on the discharge day. My findings support the fact that the patient is homebound as defined in Home Care Face to Face Continued: CMS Chapter 7 Medicare Benefits Manual 30.1.1 , The condition of the patient is such that there exists a normal inability to leave home and consequently, leaving home would require a considerable and taxing effort. Diet Recommendation: no restrictions on diet Diet Texture: Regular Texture Diet Additional Instructions: TOTAL JOINT ARTHROPLASTY DISCHARGE INSTRUCTIONS 1. Your surgeon follows the [facility] protocol for reducing your risk of DVT (blood clots) following surgery. Medication will be ordered to prevent blood clots. A sudden increase in calf pain and/or swelling could indicate a blood clot in your leg. If this occurs, please call your surgeon or his/her histology assistant. An ultrasound of the leg may be necessary to diagnose a blood clot. If you have conditions that make you a higher risk for blood clots, your surgeon may use more aggressive ways to prevent them. Notify your surgeon if you think you are a high risk for blood clots. 2. Wear your white surgical stockings (KARY hose) for 2 weeks. This decreases your swelling and may help prevent blood clots. It is ok to remove KARY hose at night time to give your legs a break. 3. Swelling and bruising in the surgical leg is common. If you feel that it is excessive, please notify your surgeon. 4. Elevate your surgical leg with the ankle above the hip several times every day. Please keep the leg straight when you elevate by putting pillows under your foot. Do not put pillows under your knee. This will make being able to fully straighten more difficult. This is uncomfortable, but try to do it as much as possible. 5. For total knee replacements use compressive wrap on your knee for 3-5 days after surgery, then you can discontinue it. 6. Use a walker or crutches for 1-2 weeks. Progress your weight-bearing as tolerated. You may start to use a cane when you feel stable and safe. 7. You will receive physical therapy instructions in the hospital. Continue those exercises at home. There are additional exercises in the total joint booklet you were given before surgery. Outpatient physical therapy will begin 7- 10 days after surgery. Please schedule this in advance. 8. Use ice on your knee at least 3-5 times every day for 30 minutes. This helps reduce pain and swelling. Also use it at night before falling asleep. 9. Leave your surgical dressing in place for 2 weeks. Your dressing is water resistant, but not waterproof. Cover it with Saran Wrap or Zukgl-t-Efbc before showering. You may shower as soon as you feel safe entering a shower. If you notice bleeding from your incision 2 or 3 days after surgery, please notify your surgeon. 10. Due to narcotics, decreased activity and altered diet, most patients experience constipation after surgery. Use sobg-nlw-hrtbiad stool softeners while you are on narcotics. 11. You may drive a car when you are comfortable bearing weight, have good muscular control of your leg and are off narcotics. This usually occurs 2-4 weeks after surgery, depending on which leg was operated on. 12. If there are questions not addressed here, please refer the [facility] book given for more information. If you still have questions, please contact your surgeon s office. 13. If you have a life-threatening emergency, please call 911 and go to the emergency room immediately. For non-life threatening emergencies, please call your physicians office for advice before going to the emergency room. - Follow Up Care Current Providers and Referrals: NONE *PRIMARY CARE P,. [Unknown] - Abhishek Lorenz MD [Medical Doctor] -
--- NOTE | 2018-07-18 07:10 | SOAPPROG ---
SOAP Progress Note Assessment/Plan: Assessment: sp tka revision Plan:doing well dvt precautions d/c home f/u at two weeks 07/18/18 07:08 Subjective: min pain no cp or sob Objective: Vital Signs Temp Pulse Resp BP Pulse Ox 36.6 C 64 16 122/70 H 96 07/18/18 04:21 07/18/18 04:21 07/18/18 04:21 07/18/18 04:21 07/18/18 04:21 Microbiology 07/17/18 12:20 Gram Stain - Final Synovial Fluid - Swab 07/17/18 12:35 Gram Stain - Final Knee - Tissue Laboratory Results 07/18/18 04:31 07/17/18 07/18/18 07/19/18 05:59 05:59 05:59 Intake Total 3580 Output Total 2850 Balance 730 dressing intact intact pf,df,ehl toes warm and pink neg homans agatha xrays stable anatomic alignment \ ICD10 Worksheet Patient Problems: Problems Problem Status Onset Right knee pain Acute
[2018-07-18] MEDS: ASPIRIN 325 MG TAB PO SCH (08:10)
[2018-07-18] MEDS: FAMOTIDINE 20 MG TAB PO SCH (08:11)
[2018-07-18] MEDS: SENNOSIDES/DOCUSATE SODIUM TAB PO SCH (08:11)
[2018-07-18 08:15] VITALS: BP 130/89
--- NOTE | 2018-07-18 08:56 | PDDCSUM ---
Discharge Summary Discharge Summary: ADMIT DIAGNOSIS: Failed right TKA, right knee pain DISCHARGE DIAGNOSIS: Failed right TKA, right knee pain DATE/NAME OF PROCEDURE: July 17, 2018 Right total knee revision, femoral and tibial components. HPI: The patient is a 67 year old male who underwent right TKA in February 2017. He continued to have pain post-operatively. Imaging revealed lucency consistent with failure of the prosthetics. Patient has failed attempts at conservative management, therefore, recommended operative revision of his right TKA. HOSPITAL COURSE: Patient was admitted to the hospital floor after uncomplicated revision of the right femoral and tibial components. Patient tolerated the procedure well and had no additional complications. At the time of discharge, patient is tolerating an oral diet, pain is well controlled on oral medications , and is voiding without difficulty. Dressing is clean, dry and intact. There is no swelling or calf tenderness. Patient has intact plantarflexion, dorsiflexion, FHL and EHL function. X-rays demonstrate anatomic positioning with no fracture or lucency. DISCHARGE ACTIVITY: Patient is WBAT and can perform ROM as tolerated. Patient was instructed to keep dressing clean, dry and intact. Patient is to seek attention for increasing redness, swelling, drainage or discharge. DISCHARGE MEDICATIONS: oxycodone 5 mg 1-2 every 3 hours prn pain, cyclobenzaprine 10 mg PO every 8 hours prn spasm, aspirin 325 mg PO daily. FOLLOW-UP: Follow up in 2 weeks. Again, patient is to seek attention for increasing redness, swelling, drainage or discharge.
[2018-07-18] MEDS ORDERED: CHOLECALCIFEROL VIT D3 1,000 UNITS TAB PO SCH (09:00)
[2018-07-18] MEDS ORDERED: LOSARTAN POTASSIUM 50 MG TAB PO SCH (09:00)
[2018-07-18] MEDS ORDERED: EZETIMIBE 10 MG TAB PO SCH (09:00)
[2018-07-18] MEDS ORDERED: FENOFIBRATE 145 MG TAB PO SCH (09:00)
[2018-07-18] MEDS ORDERED: ESCITALOPRAM OXALATE 10 MG TAB PO SCH (09:00)
[2018-07-18] MEDS ORDERED: ATORVASTATIN CALCIUM 40 MG TAB PO SCH (09:00)
--- NOTE | 2018-07-18 10:29 | ASMTLACE ---
ANTONI Length of stay for Answers: 2 days current admission Acuity / Level of Answers: Yes Care: Did the patient have an inpatient admission? # of Emergency department Answers: 0 visits in the last 6 months Score: 5 Date Signed: 07/18/2018 10:09 AM Electronically Signed By:HOME Scott
--- NOTE | 2018-07-18 10:36 | ASMTCMCOM ---
CM Note CM Note Notes: Pt had planned knee surgery, resides with spouse. PT rec home/outpatient. Pt was pre-arranged with [facility] by MD office which today pt declines. Pt reports he has had HC service in the past and knows he will manage safely at home without it. Pt medically stable for d/c, no CM d/c needs identified. Date Signed: 07/18/2018 10:11 AM Electronically Signed By:HOME Scott
--- NOTE | 2018-07-18 11:11 | GOP ---
[f rep st] OPERATIVE REPORT DATE OF OPERATION: 07/17/2018 SURGEON: Abhishek Lorenz MD EDUCATION REVIEWER: Marcos Hastings, Welder, who was medical necessity for the entirety of the case. PREOPERATIVE DIAGNOSIS: Right failed total knee arthroplasty. POSTOPERATIVE DIAGNOSIS: Right failed total knee arthroplasty. PROCEDURE PERFORMED: Right total knee arthroplasty; revision of both femoral and tibial components. FINDINGS: SPECIMENS: To pathology, as above. INDICATIONS: The patient is a 67-year-old gentleman who is known to me for previous right knee repla cement. 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 He has been worked up extensively with evidence of mechanical loos ening. No evidence of infection or allergy was present. I have recommended revision arthroplasty. I have outlined the surgical procedure, risks, benefits, and alternatives. He wished to proceed. Wr itten consent was signed and placed in patient's chart. DESCRIPTION OF PROCEDURE: The patient was identified in the preanesthesia area. The right knee thor rly demarcated as the operative site with an indelible marker. He was given 2 g of Ancef intravenous ly en route to the operative suite. In the OR, a spinal anesthetic was placed followed by additional sedation. He was positioned in the supine position. The right knee and lower extremity were steril alina prepped and draped in the usual fashion. Tourniquet was applied to the upper thigh. The limb wa s exsanguinated with Esmarch bandage. Tourniquet inflated to 275 mmHg. The previous incision was op ened in entirety, carried sharply through the skin and subcutaneous tissue, and the medial parapatell ar arthrotomy was opened. All retained Ethibond sutures were sharply excised. The fluid samples wer e sent for Gram stain culture and analysis. Upon entry into the knee joint, there was no gross purul ence. There was some brown synovium that was sent for pathological analysis. The complete synovecto my was performed. The knee was brought to a flexed position. The polyethylene spacer removed with a quarter-inch osteotome. The femoral component was loosened with an osteotome and removed with minim al bone loss. There was minimal ingrowth across the femoral cement mantle and the bone. The underly ing tissue was then sent for intraoperative pathologic analysis for inflammation and/or infection. A t the same time, attention was turned to the proximal tibia. The tibial component was removed with a quarter-inch osteotome. The cement mantle was intact. The tibia was then opened with a drill, and serial broaching carried out across the proximal stem. An intramedullary guide karen was placed. This was used to place a proximal tibial cut. This was made deep to the cement mantle, and all cement an d soft tissue were removed. There was no gross purulence underneath the tibial component. A trial t ibial component was assembled with a size 5 tibial baseplate and a 16 mm stem. This was seated fully , and attention returned to the femur. All bony surfaces were thoroughly cleansed and dried. A size 5 femoral component was selected. Additional reaming of the intramedullary canal was carried out, a nd additional removal of the notch was removed. A trial assembly was placed with a polyethylene spac er. This allowed full extension and flexion of 130 degrees without instability. Given the trial joseph yethylene spacer of 19 mm, decision was made to place 5 mm augments across the tibia. The bony surfa ryan were thoroughly cleansed. The tibia and femoral components were assembled with the stems and tib ial augments on the back table. In a sequential fashion, the tibial and femoral components were then cemented with a cement restrictor in both the tibia and femoral sides. This was placed over a 16 mm spacer and the cement was allowed to cure. Ultimately, a 5 x 16 mm polyethylene spacer was selected . This was impacted, confirmed to be fully seated. The wound margins were copiously irrigated with pulsatile lavage solution. The capsule and subcutaneous tissue were injected with joint cocktail of ropivacaine, epinephrine, and Toradol. The medial parapatellar arthrotomy was closed using #1 Ethibo nd sutures, subcutaneous tissue closed using 2-0 Monocryl, and the skin stapled. Sterile dressing wa s applied. The patient was awakened, extubated, and taken to the recovery room in good, stable condi tion. TOTAL TOURNIQUET TIME: 1 hour 5 minutes. COMPLICATIONS: None. IMPLANTS: The Triathlon total stabilizer femoral component size 5 right with a 25 mm stem racing secretary and handicapper; Triathlon total knee size 5 with a 12 mm diameter by 50 mm length stem; and 2 tibial augments size 5 mm spacers with a 5 x 16 mm total stabilizer plus tibial polyethylene. DISPOSITION: To the recovery room, then the floor. He is weightbearing and range of motion as rudy ated. /[id number]/MODL
== END 2018-07-18 12:55 | disposition home or self-care (01) | DRG 468 ==
LOC: F3N 10:08
PROVIDERS: ADMIT Orthopaedic Surgery; ATTEND Orthopaedic Surgery
PROC: 0SPC0JZ Removal of Synthetic Substitute from Right Knee Joint, Open Approach (ICD-10-PCS; principal; 2018-07-17 13:00)
PROC: 0SRC0J9 Replacement of Right Knee Joint with Synthetic Substitute, Cemented, Open Approach (ICD-10-PCS; principal; 2018-07-17 13:00)
DX: T84.032A Mechanical loosening of internal right knee prosthetic joint, initial encounter (principal); T84.84XA Pain due to internal orthopedic prosthetic devices, implants and grafts, initial encounter; I10 Essential (primary) hypertension; G47.33 Obstructive sleep apnea (adult) (pediatric); R73.03 Prediabetes; G89.29 Other chronic pain; I25.10 Atherosclerotic heart disease of native coronary artery without angina pectoris; F41.8 Other specified anxiety disorders; Z87.891 Personal history of nicotine dependence
CPT/HCPCS: 97116-GP; 97161-GP; 97165-GO; C1713; J0171; J0690; J1100; J1885; J2250; J2270; J2704; J2795; J3010; J3370

== ENCOUNTER → 2018-09-06 | Outpatient (CLI) | payer OTHER, MEDICARE | LOC: BMCIMAGING 10:04 ==